=== PATIENT | female | born 1955 | race Caucasian/White ===

== ENCOUNTER → 2017-04-21 | Outpatient (CLI) | payer OTHER ==
[2017-04-21 12:22] LABS: HEMATOCRIT 41.5 % (33.0-46.0); HEMOGLOBIN 13.6 g/dL (10.0-15.0); MCH 27.8 pg (27.0-34.0); MCHC 32.8 gm/dL (32.0-36.5); MCV 84.9 fl (83.0-98.0); MPV 9.8 fl (9.4-12.4); RBC 4.89 M/uL (3.50-5.50); RDW-CV 12.7 % (11.9-14.6); WBC 9.6 K/uL (4.0-11.0)
[2017-04-21 12:39] LABS: ALBUMIN 3.5 gm/dL (3.5-5.0); ANION GAP 12.9 (10.0-19.0); CALCIUM 9.2 mg/dL (8.5-10.5); CREATININE 1.1 mg/dL (0.5-1.1); PHOSPHORUS 3.3 mg/dL (2.5-4.9); POTASSIUM 4.9 mMol/L (3.7-5.1); TOTAL BILIRUBIN 0.4 mg/dL (0.0-1.5); TOTAL PROTEIN 7.1 g/dL (6.0-8.4)
[2017-04-21 12:55] LABS: BILIRUBIN URINE NEGATIVE (NEGATIVE); BLOOD URINE 250 /UL (NEGATIVE); GLUCOSE URINE NEGATIVE (NEGATIVE); KETONE URINE NEGATIVE (NEGATIVE); LEUKOCYTES URINE 25 /UL (NEGATIVE); NITRITE URINE NEGATIVE (NEGATIVE); PROTEIN URINE 100 mg/dL (NEGATIVE); UROBILINOGEN URINE NORMAL (NORMAL)
[2017-04-21 13:03] LABS: COLOR URINE STRAW (YELLOW); TURBIDITY URINE CLEAR (CLEAR)
[2017-04-21 13:40] LABS: BACTERIA URINE MODERATE (NEGATIVE)
[2017-04-21 13:47] LABS: RBC URINE 0-2 #/HPF (NEGATIVE)
== END | disposition disaster alternative care site (69) ==
LOC: GLAB 11:00
PROVIDERS: Internal Medicine Nephrology
DX: Z00.00 Encounter for general adult medical examination without abnormal findings (principal); E87.5 Hyperkalemia; E03.9 Hypothyroidism, unspecified; E78.5 Hyperlipidemia, unspecified; I12.9 Hypertensive chronic kidney disease with stage 1 through stage 4 chronic kidney disease, or unspecified chronic kidney disease; N18.9 Chronic kidney disease, unspecified; E11.29 Type 2 diabetes mellitus with other diabetic kidney complication; E55.9 Vitamin D deficiency, unspecified

== ENCOUNTER → 2017-05-02 | Outpatient (CLI) | payer OTHER | LOC: LGSMG 12:18 | DX: I12.9 Hypertensive chronic kidney disease with stage 1 through stage 4 chronic kidney disease, or unspecified chronic kidney disease (principal); E11.29 Type 2 diabetes mellitus with other diabetic kidney complication ==

== ENCOUNTER → 2017-05-06 | Outpatient (CLI) | payer OTHER | END | disposition disaster alternative care site (69) | LOC: GBCOE 07:45 | DX: Z12.31 Encounter for screening mammogram for malignant neoplasm of breast (principal) | CPT/HCPCS: G0202 ==